=== PATIENT | female | born 1975 | race Caucasian/White ===

== ENCOUNTER → 2017-06-01 | Outpatient (CLI) | payer OTHER ==
[~2017-06-01] VITALS: Ht 152.4 cm; Wt 63.5 kg
[~2017-06-01] MED LIST: ADVAIR 250/501 DISK IH; DUEXIS 800-26.1 EACH PO; FIORICET 50-301 EAC1 PO; KLONOPIN0.5 M1 PO; LEXAPRO20 MG PO; NASONEX17 GM BOTH NARES; NEXIUM40 MG PO; NORVASC5 MG PO; ROBAXIN500 MG PO; SINGULAIR10 MG PO; SUBOXONE 8 MG-1 EAC2 SL; VASOTEC5 MG PO; VENTOLIN HFA18 GM IH; WELLBUTRIN SR100 MG PO; WELLBUTRIN SR150 MG PO
== END | disposition home or self-care (01) ==
LOC: AMB 13:57
DX: B37.81 Candidal esophagitis (principal); K29.70 Gastritis, unspecified, without bleeding; K21.9 Gastro-esophageal reflux disease without esophagitis; K58.0 Irritable bowel syndrome with diarrhea; I10 Essential (primary) hypertension; Z86.010 Personal history of colon polyps; F17.200 Nicotine dependence, unspecified, uncomplicated
CPT/HCPCS: 88305; 88312; 88342 TC; 93005; J2250; J3010